=== PATIENT | female | born 1990 | race Caucasian/White ===

== ENCOUNTER 2018-01-26 23:53 | Observation (INO) | payer MEDICAID ==
[~2018-01-26] VITALS: Ht 167.6 cm; Wt 108.9 kg
[2018-01-27] MEDS ORDERED: SODIUM CHLORIDE 0.9% 1,000 ML IV NR (01:15)
[2018-01-27] MEDS ORDERED: ACETAMINOPHEN 500MG TABLET PO NR (01:15)
[2018-01-27] MEDS ORDERED: FERR-71 MT (01:21)
[2018-01-27] MEDS ORDERED: FOLI-43 MT (01:21)
[2018-01-27] MEDS ORDERED: OCD PO (01:21)
[2018-01-27] MEDS ORDERED: PNV1TABL76 MT (01:21)
[2018-01-27 02:16] LABS: CLARITY URINE CLEAR (CLEAR); COLOR URINE DARK YELLOW (YELLOW); KETONES URINE 4+ (NEGATIVE); LEUKOCYTE ESTERASE URINE NEGATIVE (NEGATIVE); NITRITE URINE NEGATIVE (NEGATIVE); OCCULT BLOOD URINE NEGATIVE (NEGATIVE); PROTEIN URINE TRACE (NEGATIVE); SPECIFIC GRAVITY URINE 1.027 (1.005-1.030)
[2018-01-27] MEDS: TERBUTALINE SULFATE 1MG/ML VIAL SUBCUT PRN ×2 (02:47→04:03)
[2018-01-27] MEDS ORDERED: DEXT 5%/LACTATED RINGERS 1,000 ML IV SCH (03:41)
[2018-01-27] MEDS ORDERED: CEFAZOLIN 2,000 MG in DEXT 5% WATER 100 ML IV NR (04:00)
== END 2018-01-27 05:45 | disposition home or self-care (01) ==
LOC: L&D 23:53
PROVIDERS: ADMIT Obstetrics & Gynecology Obstetrics; ATTEND Specialist
DX: O26.892 Other specified pregnancy related conditions, second trimester (principal); R10.9 Unspecified abdominal pain; M54.9 Dorsalgia, unspecified; O21.2 Late vomiting of pregnancy; Z3A.23 23 weeks gestation of pregnancy
CPT/HCPCS: 81003; 82731; 96365; 96372; 99281; G0378; J0690; J3105; J7030; 96360; 96361; J7060